=== PATIENT | male | born 1985 | race African-American/Black ===

== ENCOUNTER 2017-04-22 15:30 | Emergency (ER) | payer OTHER ==
[~2017-04-22] VITALS: Ht 188 cm; Wt 145.1 kg
[~2017-04-22 15:30] MED LIST: ALBUTEROL SULF8.5 GM IH; ALEVE220 M2 PO; AMBIEN CR12.5 MG PO; DESYREL 150 MG150 MG PO; DEXTROAMP-AMPHE30 MG PO; FLONASE16 G1 BOTH NARES; HYDROCODON-ACE1 EAC7 PO; KLONOPIN1 MG PO; LAMICTAL25 MG PO; MULTI VITAMIN1 EACH PO; OXYCODONE HCL5 MG PO; PREDNISONE10 M1 PO; ROXICODONE5 MG PO; VALTREX1000 MG PO; VITAMIN D-32000 UNI1 PO; ZITHROMAX250 MG PO
[2017-04-22 16:14] LABS: EOSINOPHIL COUNT 0.1 K/uL (0-0.3); HEMATOCRIT 45.5 % (38.0-50.0); IMMATURE GRANULOCYTE (%) 0.3 % (0.0-0.7); INSTRUMENT ABS NEUTROPHIL CT 3.1 K/uL; LYMPHOCYTE COUNT 2.9 K/uL (1.0-2.8); MCH 27.2 PG (29.0-34.0); MCHC 33.2 G/DL (30.0-36.0); MCV 81.8 FL (86-99); MEAN PLAT.VOLUME 11.1 uM^3 (9.0-12.4); MONOCYTE (%) 10.3 % (3-12); MONOCYTE COUNT 0.7 K/uL (0-0.8); NEUTROPHIL (%) 46.1 % (45-76); NEUTROPHIL COUNT 3.1 K/uL (1.8-6.4); PLATELET COUNT 274 K/uL (156-360); RBC DIS.WIDTH-CV 12.6 % (11.8-14.6); RBC DIS.WIDTH-SD 37.6 % (39-53); RED BLOOD COUNT 5.56 M/uL (4.00-5.50); WHITE BLOOD COUNT 6.8 K/uL (4.1-10.2)
[2017-04-22 16:25] LABS: CHLORIDE 105 mEq/L (99-109); POTASSIUM 4.3 mEq/L (3.7-5.4); SODIUM 142 mEq/L (136-147)
[2017-04-22 16:26] LABS: GLUCOSE 104 mg/dL (70-99)
[2017-04-22 16:28] LABS: ANION GAP 10 MEQ/L (2-14)
[2017-04-22 16:30] LABS: GFR ESTIMATE (CALCULATED) > 59 mL/min/
[2017-04-22 16:31] LABS: UREA NITROGEN (BUN) 13 mg/dL (9-23)
[2017-04-22] MEDS ORDERED: VALTREX50 MG/ML PO (18:07)
[2017-04-22] MEDS ORDERED: COMBIVENT RESPIM4 GM IH (18:07)
[2017-04-22] MEDS ORDERED: PREDNISONE50 MG PO (18:11)
[2017-04-22 18:24] VITALS: BP 125/85
== END 2017-04-22 18:25 | disposition home or self-care (01) ==
LOC: EME 15:30
PROVIDERS: Emergency Medicine
DX: R60.0 Localized edema (principal); L51.1 Stevens-Johnson syndrome; J45.909 Unspecified asthma, uncomplicated; F90.9 Attention-deficit hyperactivity disorder, unspecified type; M41.9 Scoliosis, unspecified
CPT/HCPCS: 71010; 80048; 85025; 93005; 99281; 99284; J7512